=== PATIENT | female | born 1965 | race Hispanic/Latino ===

== ENCOUNTER 2017-08-03 15:51 | Inpatient (IN) | payer MEDICAID ==
[2017-08-03 16:32] LABS: Basophils % (Auto) 0.5 % (0.0-1.8); Eosinophils % (Auto) 3.8 % (0.0-4.3); Hematocrit 37.7 % (30.3-42.9); Hemoglobin 12.2 gm/dl (10.1-14.3); Mean Corpuscular HGB Conc 33 % (30-34); Mean Corpuscular Hemoglobin 29 pg (28-32); Mean Corpuscular Volume 90 fl (79-97); Platelet Count 302 K/mm3 (140-440); Red Blood Count 4.17 M/mm3 (3.65-5.03); Red Cell Distribution Width 15.5 % (13.2-15.2); White Blood Count 7.8 K/mm3 (4.5-11.0)
[2017-08-03 16:57] LABS: Anion Gap 16 mmol/L; BUN/Creatinine Ratio 20; Blood Urea Nitrogen 12 mg/dL (7-17); Calcium 8.9 mg/dL (8.4-10.2); Carbon Dioxide 26 mmol/L (22-30); Chloride 107.6 mmol/L (98-107); Glucose 78 mg/dL (65-100); Potassium 4.4 mmol/L (3.6-5.0); Sodium 145 mmol/L (137-145)
--- NOTE | 2017-08-03 17:26 | XRay Report ---
FINAL REPORT EXAM: XR CHEST 1V AP HISTORY: sob TECHNIQUE: upright single view chest PRIORS: None. FINDINGS: Cardiac and mediastinal contours are unremarkable. No focal pulmonary infiltrate is identified. No pleural fluid collection seen. Pulmonary vasculature is unremarkable. IMPRESSION: Negative single-view chest
[2017-08-03] MEDS ORDERED: XOPENEX IH ONE (17:30)
[2017-08-03] MEDS ORDERED: LASIX IV ONE (17:30)
[2017-08-03] MEDS ORDERED: ATROVENT IH ONE (17:30)
--- NOTE | 2017-08-03 17:35 | Emergency Department Report ---
ED Shortness of Breath HPI - General Chief Complaint: Dyspnea/Respdistress Stated Complaint: SOCORRO Time Seen by Provider: 08/03/17 17:21 Source: EMS Mode of arrival: Wheelchair Limitations: Physical Limitation - History of Present Illness Initial Comments: Patient is 52 years old morbidly obese female with history of COPD and congestive heart failure presented with three-day history of increasing shortness of breath and difficulty breathing. Patient stated that she is using her albuterol and she double up her Lasix and this morning but no improvement. Patient denied any fever nausea or vomiting. No chest pain. MD Complaint: shortness of breath -: Gradual Improves With: nothing Known History Of: COPD, congestive heart failure - Related Data Home Oxygen Therapy: Yes Home Oxygen Amount: 2 Liters Home Medications Medication Instructions Recorded Confirmed Last Taken Gabapentin [Gralise] 300 mg PO QHS 08/03/17 08/03/17 Unknown Symbicort 160-4.5 Mcg Inhaler 165 mcg IH Q6HR 08/03/17 08/03/17 08/02/17 Previous Rx's Medication Instructions Recorded Last Taken Type Albuterol Sulfate [Ventolin HFA] 2 puff IH Q4H PRN #1 hfa.aer.ashwini 07/08/17 Unknown Rx Aspirin [Lo-Dose Aspirin EC] 81 mg PO DAILY #30 tablet. 07/08/17 Unknown Rx AtorvaSTATin [Lipitor] 10 mg PO QHS #30 tablet 07/08/17 Unknown Rx Budesonide/Formoterol Fumarate 10.2 gm IH Q4-6H #1 hfa.aer.ashwini 07/08/17 Unknown Rx [Symbicort 160-4.5 Mcg Inhaler] Carvedilol [Coreg] 12.5 mg PO BID #60 tablet 07/08/17 Unknown Rx Docusate Sodium [Colace CAP] 100 mg PO BID PRN #60 capsule 07/08/17 Unknown Rx Duloxetine HCl [DULoxetine] 30 mg PO DAILY #30 capsule. 07/08/17 Unknown Rx Folic Acid [Folvite] 1 mg PO QDAY #30 tablet 07/08/17 Unknown Rx Furosemide [Lasix] 80 mg PO BID #60 tablet 07/08/17 Unknown Rx Levofloxacin [Levaquin TAB] 750 mg PO Q24HR #5 tablet 07/08/17 Unknown Rx Loratadine [Claritin] 10 mg PO DAILY #30 tablet 07/08/17 Unknown Rx oxyCODONE /ACETAMINOPHEN [Percocet 1 tab PO Q6HR PRN #14 tablet 07/08/17 Unknown Rx 5/325 mg] predniSONE [Deltasone] 10 mg PO .TAPER #21 tab 07/08/17 Unknown Rx Allergies Allergy/AdvReac Type Severity Reaction Status Date / Time No Known Allergies Allergy Unverified 07/03/17 07:39 ED Review of Systems ROS: Stated complaint: SOCORRO Other details as noted in HPI Comment: All other systems reviewed and negative Constitutional: denies: chills, fever Respiratory: orthopnea, shortness of breath, SOB with exertion, SOB at rest, wheezing. denies: cough Cardiovascular: dyspnea on exertion, orthopnea. denies: chest pain, palpitations, edema, syncope Gastrointestinal: denies: abdominal pain, nausea, vomiting, diarrhea, constipation, hematemesis, melena, hematochezia Genitourinary: denies: urgency Neurological: denies: headache, weakness, numbness, paresthesias ED Past Medical Hx - Past Medical History Previous Medical History?: Yes Hx Hypertension: Yes Hx Congestive Heart Failure: Yes Hx Deep Vein Thrombosis: Yes Hx COPD: Yes Additional medical history: lymphedema - Surgical History Past Surgical History?: Yes Hx Cholecystectomy: Yes Additional Surgical History: cyst removed from wrist, tubal ligation - Social History Smoking Status: Former Smoker - Medications Home Medications: Home Medications Medication Instructions Recorded Confirmed Last Taken Type Albuterol Sulfate [Ventolin HFA] 2 puff IH Q4H PRN #1 hfa.aer.ad 07/08/17 Unknown Rx Aspirin [Lo-Dose Aspirin EC] 81 mg PO DAILY #30 tablet.dr 07/08/17 08/03/17 Unknown Rx AtorvaSTATin [Lipitor] 10 mg PO QHS #30 tablet 07/08/17 08/03/17 Unknown Rx Budesonide/Formoterol Fumarate 10.2 gm IH Q4-6H #1 hfa.aer.ad 07/08/17 08/03/17 Unknown Rx [Symbicort 160-4.5 Mcg Inhaler] Carvedilol [Coreg] 12.5 mg PO BID #60 tablet 07/08/17 08/03/17 Unknown Rx Docusate Sodium [Colace CAP] 100 mg PO BID PRN #60 capsule 07/08/17 08/03/17 Unknown Rx Duloxetine HCl [DULoxetine] 30 mg PO DAILY #30 capsule. 07/08/17 08/03/17 Unknown Rx Folic Acid [Folvite] 1 mg PO QDAY #30 tablet 07/08/17 08/03/17 Unknown Rx Furosemide [Lasix] 80 mg PO BID #60 tablet 07/08/17 08/03/17 Unknown Rx Levofloxacin [Levaquin TAB] 750 mg PO Q24HR #5 tablet 07/08/17 08/03/17 Unknown Rx Loratadine [Claritin] 10 mg PO DAILY #30 tablet 07/08/17 08/03/17 Unknown Rx oxyCODONE /ACETAMINOPHEN [Percocet 1 tab PO Q6HR PRN #14 tablet 07/08/17 Unknown Rx 5/325 mg] predniSONE [Deltasone] 10 mg PO .TAPER #21 tab 07/08/17 08/03/17 Unknown Rx Gabapentin [Gralise] 300 mg PO QHS 08/03/17 08/03/17 Unknown History Symbicort 160-4.5 Mcg Inhaler 165 mcg IH Q6HR 08/03/17 08/03/17 08/02/17 History ED Physical Exam - General Limitations: No Limitations, Physical Limitation General appearance: alert, in distress - Head Head exam: Present: atraumatic, normocephalic, normal inspection - Eye Eye exam: Present: normal appearance, PERRL - ENT ENT exam: Present: normal exam, normal orophraynx, mucous membranes moist - Neck Neck exam: Present: normal inspection, full ROM. Absent: tenderness, meningismus, lymphadenopathy, thyromegaly - Respiratory Respiratory exam: Present: respiratory distress, wheezes, rales, rhonchi, decreased breath sounds, prolonged expiratory. Absent: stridor, chest wall tenderness, accessory muscle use - Cardiovascular Cardiovascular Exam: Present: regular rate, normal rhythm, normal heart sounds - GI/Abdominal GI/Abdominal exam: Present: soft, normal bowel sounds. Absent: tenderness, guarding, rebound, rigid, organomegaly, mass, bruit, pulsatile mass - Extremities Exam Extremities exam: Present: normal inspection, normal capillary refill, pedal edema. Absent: calf tenderness - Back Exam Back exam: Present: normal inspection, CVA tenderness (R), CVA tenderness (L). Absent: paraspinal tenderness - Neurological Exam Neurological exam: Present: alert, oriented X3, CN II-XII intact, normal gait - Skin Skin exam: Present: warm, intact, normal color. Absent: cyanosis, diaphoretic, erythema, urticaria ED Course Vital Signs 08/03/17 08/03/17 08/03/17 15:57 16:00 16:08 Temperature 98.2 F Pulse Rate 95 H 92 H Respiratory 17 14 16 Rate Blood Pressure 130/84 O2 Sat by Pulse 100 99 90 Oximetry 08/03/17 08/03/17 08/03/17 16:15 16:30 16:46 Temperature Pulse Rate 86 Respiratory 11 L 16 17 Rate Blood Pressure 143/102 113/71 114/88 O2 Sat by Pulse 99 100 98 Oximetry ED Medical Decision Making - Lab Data Result diagrams: 08/03/17 16:14 08/03/17 16:14 - EKG Data -: EKG Interpreted by Me EKG shows normal: sinus rhythm - EKG Data Interpretation: no acute changes - Radiology Data Radiology results: report reviewed interpreted by me: Pulmonary edema was bilateral pleural effusion. - Medical Decision Making Discussed is Dr. Paz, I presented the patient to him, he agreed to admit the patient to his service. Critical care attestation.: If time is entered above; I have spent that time in minutes in the direct care of this critically ill patient, excluding procedure time. ED Disposition Clinical Impression: Acute respiratory failure, Hypercapnic respiratory failure, Morbid obesity, COPD with acute exacerbation, Acute exacerbation of CHF (congestive heart failure) Disposition: OP ADMIT IP TO THIS HOSP Is pt being admited?: Yes Condition: Stable Instructions: Chronic Obstructive Pulmonary Disease (ED) Referrals: PRIMARY CARE, [Primary Care Provider] - 3-5 Days
[2017-08-03] MEDS ORDERED: PERCOCET 5/325 ONE (19:01)
[2017-08-03] MEDS ORDERED: PERCOCET 5/325 PO ONE (19:14)
[2017-08-03] MEDS ORDERED: PROAIR IH PRN (21:49)
[2017-08-03] MEDS ORDERED: COLACE PO PRN (21:49)
--- NOTE | 2017-08-03 21:49 | Event Note ---
Date: 08/03/17
[2017-08-03] MEDS ORDERED: DUONEB *Not for PRN Use IH (21:52)
[2017-08-03] MEDS ORDERED: NON-FORMULARY (Gabapentin [Gralise] 300 MG) PO SCH (22:00)
[2017-08-03] MEDS ORDERED: NON-FORMULARY (Budesonide/Formoterol Fumarate [Symbicort 160-4.5 Mcg Inhaler] 10.2 GM) IH SCH (22:00)
[2017-08-03] MEDS ORDERED: LASIX PO SCH (22:00)
[2017-08-03] MEDS: FOLVITE PO SCH (22:38)
[2017-08-03] MEDS: LEVAQUIN 750MG/150ML 750 MG/150 ML BAG IV SCH (22:39)
[2017-08-03] MEDS: COREG PO SCH (22:41)
[2017-08-03] MEDS ORDERED: PROVENTIL IH PRN (22:46)
[2017-08-03] MEDS: CYMBALTA PO SCH (22:52)
[2017-08-03] MEDS: DUONEB *Not for PRN Use IH SCH (22:53)
[2017-08-04] MEDS: PERCOCET 5/325 PO PRN ×4 (01:06→23:01)
[2017-08-04] MEDS ORDERED: BROVANA NEBU IH SCH (08:00)
[2017-08-04] MEDS ORDERED: PULMICORT IH SCH (08:00)
[2017-08-04] MEDS ORDERED: DULCOLAX PR PRN (08:22)
[2017-08-04] MEDS ORDERED: TYLENOL PO PRN (08:22)
[2017-08-04] MEDS ORDERED: MILK OF MAGNESIA PO PRN (08:22)
[2017-08-04] MEDS: DUONEB *Not for PRN Use IH SCH ×4 (09:15→21:17)
[2017-08-04] MEDS: COREG PO SCH ×2 (10:22→22:55)
[2017-08-04] MEDS: CYMBALTA PO SCH (10:22)
[2017-08-04] MEDS: HALFPRIN EC PO SCH (10:23)
[2017-08-04] MEDS: FOLVITE PO SCH (10:23)
[2017-08-04] MEDS: CLARITIN PO SCH (10:23)
[2017-08-04] MEDS: K-DUR PO SCH ×2 (10:23→22:50)
[2017-08-04] MEDS: LEVAQUIN 750MG/150ML 750 MG/150 ML BAG IV SCH (10:28)
[2017-08-04 11:02] LABS: ISTAT Base Excess 0; ISTAT DEVICE 0; ISTAT HCO3 25.1; ISTAT PCO2 42.3 (35-45); ISTAT PH 7.381 (7.35-7.45); ISTAT PO2 56 (80-105); ISTAT SO2 88; ISTAT TCO2 26
--- NOTE | 2017-08-04 13:07 | History and Physical Report ---
CHIEF COMPLAINT: Increasing shortness of breath for 3 days. HISTORY OF PRESENT ILLNESS: A 52-year-old -Stateless female with history of COPD and congestive heart failure, presents with 3 days history of worsening shortness of breath. The patient also retaining ____. Took 160 mg of Lasix this morning with no results. Continues to have wheezing and cough productive of mucoid sputum. No chest pain. No diaphoresis. No palpitations. No fever, no chills. No recent travel. PAST MEDICAL HISTORY: Significant for COPD, hyperlipidemia, hypertension, congestive heart failure, allergic rhinitis. PAST SURGICAL HISTORY: Cholecystectomy and tubal ligation and a cyst removed from the wrist. SOCIAL HISTORY: Former smoker, stopped smoking many years ago. FAMILY HISTORY: Significant for hypertension. CURRENT MEDICATIONS: Albuterol inhaler 2 puffs q.i.d., aspirin 81 mg once a day, Lipitor 10 mg once a day, Symbicort inhaler 2 puffs b.i.d., Coreg 12.5 mg twice a day, Cymbalta 30 mg once a day, folic acid 1 mg once a day, Lasix 80 mg 1 twice a day, loratadine 10 mg once a day, and prednisone 10 mg once a day. REVIEW OF SYSTEMS: Significant for increasing shortness of breath and increasing fluid retention and shortness of breath on minimal exertion. Also, morbid obesity. Otherwise, review of systems is essentially negative. PHYSICAL EXAMINATION: GENERAL: Middle-aged female, morbidly obese. VITAL SIGNS: Blood pressure is 130/84, temperature 98.2, sats ranging from 90% 100%. Temperature 98.2, heart rate 88-95. HEENT: Unremarkable. Pupils equal and reactive. Posterior pharynx is normal. NECK: Supple, no lymphadenopathy, no thyromegaly. Accessory muscles of respiration are prominent. CHEST AND LUNGS: Bilateral inspiratory and expiratory rhonchi present. Decreased air entry. CARDIOVASCULAR: S1, S2 heard. No gallop, no murmur, no rub. Apical impulse in left fifth intercostal space and midclavicular line. ABDOMEN: Soft and benign. No tenderness. Hernial orifices are normal. EXTREMITIES: 3+ pedal edema present. CENTRAL NERVOUS SYSTEM: Alert and oriented x 4, nonfocal exam. LABORATORY DATA: Hemoglobin is 12.2, hematocrit is 37.7. Sodium is 145, potassium is 4.4, chloride is 107.6, BUN and creatinine 12 and 0.6. EKG, normal sinus rhythm. Chest x-ray, no infiltrates. No ABG done. ASSESSMENT AND PLAN: 1. Chronic obstructive pulmonary disease exacerbation. The patient started on DuoNebs q.6h. round the clock and q.3h. p.r.n. IV Solu-Medrol. Also, IV Levaquin q.24h. 2. Congestive heart failure. IV Lasix 80 mg twice a day along with potassium 40 mEq twice a day. 3. Hypertension. Continue carvedilol 12.5 mg twice a day. 4. Depression. Continue duloxetine 30 mg daily. 5. Hyperlipidemia. Continue statin. Add Lipitor 10 mg daily. 6. Allergic rhinitis. Continue Claritin 10 mg p.o. daily. 7. Chronic pain. Continue oxycodone q.6h. p.r.n. 8. Deep venous thrombosis prophylaxis, Lovenox 40 mg subcutaneous daily. 9. Morbid obesity. The patient to be counseled by team. JOB# [id number] SUSANA/NTS
--- NOTE | 2017-08-04 14:10 | Progress Note ---
Assessment and Plan /Acute respiratory failure with hypoxia Patient oxygen saturation improved with BiPAP; currently SPO2 98%. No acute respiratory distress noted. Aggressive Nebulizers/Inhalers Home o2 eval prior to discharge ABG when necessary Oxygen supplement as needed Pulmonary consulted continue Supportive care /Acute COPD exacerbation Continue on Duoneb every 6 hours Ferdinand IV steroid Solumedrol Initiated empiric Levaquin Oxygen as necessary /Acute on Chronic diastolic Congestive heart failure Continue Diuresis with lasix, beta blockers Strict I&O's and daily weights Low-sodium/cardiac diet/fluid restriction Closely monitor electrolytes Cardiology evaluation /Hypertension Resume home antihypertensive medications Closely monitor blood pressure /Hyperlipidemia Resume statin /Morbid obesity Counseling done Case managment consult to assist with social issues. /Chronic Lymphdema PT/OT eval and treat /DVT prophylaxis Lovenox Brief history: Patient is 52 years old morbidly obese female with history of COPD and congestive heart failure presented with three-day history of increasing shortness of breath and difficulty breathing. Radiological test: CXR Hospitalist Physical exam: GENERAL: morbidly obese White female lying on bed appeared to be in mild discomfort. HEENT: Normocephalic. Atraumatic. No conjunctival congestion or icterus. Patient has moist mucous membranes. NECK: Supple. Trachea midline. CHEST/LUNGS: crackle auscultated bilaterally, breathing nonlabored. HEART/CARDIOVASCULAR: Regular in rate and rhythm. S1 and S2 positive. ABDOMEN: Abdomen is soft, nontender, obese. Patient has normal bowel sounds. SKIN: There is no rash. Warm and dry. NEURO: No focal motor deficit. Follows command. MUSCULOSKELETAL: No joint effusion or tenderness. EXTRIMITY: No edema, no cyanosis or clubbing. PSYCH: Cooperative. Subjective Date of service: 08/04/17 Interval history: Pt seen and examined c/o SOB, not on home o2 placed on BiPAP at night but now off Objective - Constitutional Vitals: Vital Signs - 12hr 08/04/17 08/04/17 08/04/17 08:03 09:13 09:15 Temperature 98.0 F Pulse Rate 69 Pulse Rate [ 66 Bilateral Throughout] Respiratory 20 Rate Respiratory 20 Rate [Bilateral Throughout] Blood Pressure 146/83 O2 Sat by Pulse 90 93 Oximetry 08/04/17 08/04/17 08/04/17 09:44 10:22 10:53 Temperature Pulse Rate Pulse Rate [ 85 Bilateral Throughout] Respiratory Rate Respiratory 20 Rate [Bilateral Throughout] Blood Pressure 146/83 O2 Sat by Pulse 90 Oximetry - Labs CBC & Chem 7: 08/03/17 16:14 08/03/17 16:14 Labs: Abnormal lab results 08/03/17 08/03/17 08/04/17 Range/Units 16:14 16:14 10:53 RDW 15.5 H (13.2-15.2) % [place] % (Auto) 8.6 H (0.0-7.3) % POC ABG pO2 56 L (80-105) Chloride 107.6 H (98-107) mmol/L Creatinine 0.6 L (0.7-1.2) mg/dL
[2017-08-04] MEDS ORDERED: PROVENTIL IH PRN (14:54)
[2017-08-04] MEDS: LASIX IV SCH (17:55)
[2017-08-04] MEDS: BROVANA NEBU IH SCH (21:15)
[2017-08-04] MEDS: PULMICORT IH SCH (21:17)
[2017-08-04] MEDS ORDERED: LOVENOX SUB-Q SCH (22:00)
[2017-08-04] MEDS: LOVENOX SUB-Q SCH (22:55)
[2017-08-05] MEDS: DUONEB *Not for PRN Use IH SCH ×4 (02:02→20:04)
[2017-08-05] MEDS: LASIX IV SCH ×2 (06:55→17:19)
[2017-08-05] MEDS: PERCOCET 5/325 PO PRN ×4 (07:11→22:24)
[2017-08-05 09:35] LABS: Anion Gap 19 mmol/L; BUN/Creatinine Ratio 26; Blood Urea Nitrogen 18 mg/dL (7-17); Calcium 8.8 mg/dL (8.4-10.2); Carbon Dioxide 28 mmol/L (22-30); Chloride 97.4 mmol/L (98-107); Glucose 186 mg/dL (65-100); Potassium 4.4 mmol/L (3.6-5.0); Sodium 140 mmol/L (137-145)
[2017-08-05] MEDS: PULMICORT IH SCH ×2 (10:15→20:03)
[2017-08-05] MEDS: BROVANA NEBU IH SCH ×2 (10:15→20:03)
[2017-08-05] MEDS: HALFPRIN EC PO SCH (11:01)
[2017-08-05] MEDS: CYMBALTA PO SCH (11:02)
[2017-08-05] MEDS: CLARITIN PO SCH (11:05)
[2017-08-05] MEDS: FOLVITE PO SCH (11:05)
[2017-08-05] MEDS: PROTONIX PO SCH (11:06)
[2017-08-05] MEDS: COREG PO SCH ×2 (11:10→21:33)
[2017-08-05] MEDS: K-DUR PO SCH ×2 (11:10→21:29)
[2017-08-05] MEDS: LEVAQUIN 750MG/150ML 750 MG/150 ML BAG IV SCH (11:11)
--- NOTE | 2017-08-05 12:03 | Consultation ---
History of Present Illness Consult date: 08/05/17 Requesting physician: PATRICIA STANLEY Consult reason: congestive heart failure History of present illness: The pt is a 52 YO female with a past medical history significant for HTN, diastolic HF, FRANKI, ? obesity hypoventilation syndrome, morbid obesity, COPD, fibromyalgia, lymphedema. She reports that she is regularly followed by [facility]. She has been seen by our practice on prior admission. She presented with SOB and generalized weakness since 6AM on Saturday. She reports that she has been taking 80mg PO BID of lasix at home. She noted on Saturday that her urine output was diminished, and thus she doubled her lasix dosage on Saturday, as reportedly instructed to do per her sales representative aircraft. She continued to have diminished urine output despite the increased lasix dosage and on Saturday she developed SOB. She denies any chest pain, palpitations, n/v, diaphoresis, dizziness or syncope. On evaluation, she is on O2 via [place]. She reports that she has not followed up with her sales representative aircraft recently due to transportation issues. Echo done 07/06/2017 showed mild LVH, EF 50-55%, impaired relaxation. Past History Past Medical History: COPD, heart failure (diastolic), hypertension, other ( morbid obesity; FRANKI) Social history: denies: smoking, alcohol abuse, prescription drug abuse Medications and Allergies Allergies Allergy/AdvReac Type Severity Reaction Status Date / Time No Known Allergies Allergy Unverified 07/03/17 07:39 Home Medications Medication Instructions Recorded Confirmed Last Taken Type Albuterol Sulfate [Ventolin HFA] 2 puff IH Q4H PRN #1 hfa.aer.ashwini 07/08/17 Unknown Rx Aspirin [Lo-Dose Aspirin EC] 81 mg PO DAILY #30 tablet. 07/08/17 08/03/17 Unknown Rx AtorvaSTATin [Lipitor] 10 mg PO QHS #30 tablet 07/08/17 08/03/17 Unknown Rx Budesonide/Formoterol Fumarate 10.2 gm IH Q4-6H #1 hfa.aer.ashwini 07/08/17 08/03/17 Unknown Rx [Symbicort 160-4.5 Mcg Inhaler] Carvedilol [Coreg] 12.5 mg PO BID #60 tablet 07/08/17 08/03/17 Unknown Rx Docusate Sodium [Colace CAP] 100 mg PO BID PRN #60 capsule 07/08/17 08/03/17 Unknown Rx Duloxetine HCl [DULoxetine] 30 mg PO DAILY #30 capsule. 07/08/17 08/03/17 Unknown Rx Folic Acid [Folvite] 1 mg PO QDAY #30 tablet 07/08/17 08/03/17 Unknown Rx Furosemide [Lasix] 80 mg PO BID #60 tablet 07/08/17 08/03/17 Unknown Rx Levofloxacin [Levaquin TAB] 750 mg PO Q24HR #5 tablet 07/08/17 08/03/17 Unknown Rx Loratadine [Claritin] 10 mg PO DAILY #30 tablet 07/08/17 08/03/17 Unknown Rx oxyCODONE /ACETAMINOPHEN [Percocet 1 tab PO Q6HR PRN #14 tablet 07/08/17 Unknown Rx 5/325 mg] predniSONE [Deltasone] 10 mg PO .TAPER #21 tab 07/08/17 08/03/17 Unknown Rx Gabapentin [Gralise] 300 mg PO QHS 08/03/17 08/03/17 Unknown History Symbicort 160-4.5 Mcg Inhaler 165 mcg IH Q6HR 08/03/17 08/03/17 08/02/17 History Active Meds: Active Medications Acetaminophen (Tylenol) 650 mg PO Q4H PRN PRN Reason: Pain MILD(1-3)/Fever >100.5/EDWARDS Albuterol (Proventil) 2.5 mg IH Q4HRT PRN PRN Reason: Shortness Of Breath Albuterol/Ipratropium (Duoneb *Not For Prn Use*) 1 ampul IH Q6HRT [facility] Last Admin: 08/05/17 10:15 Dose: Not Given Arformoterol Tartrate (Brovana Nebu) 15 mcg IH Q12HRT [facility] Last Admin: 08/05/17 10:15 Dose: 15 mcg Aspirin (Halfprin Ec) 81 mg PO DAILY [facility] Last Admin: 08/05/17 11:01 Dose: 81 mg Atorvastatin Calcium (Lipitor) 10 mg PO QHS [facility] Last Admin: 08/04/17 22:55 Dose: 10 mg Bisacodyl (Dulcolax) 10 mg MA QDAY PRN PRN Reason: Constipation unrelieved by MOM Budesonide (Pulmicort) 0.5 mg IH Q12HRT [facility] Last Admin: 08/05/17 10:15 Dose: 0.5 mg Carvedilol (Coreg) 12.5 mg PO BID [facility] Last Admin: 08/05/17 11:10 Dose: Not Given Docusate Sodium (Colace) 100 mg PO BID PRN PRN Reason: Constipation Duloxetine HCl (Cymbalta) 30 mg PO DAILY [facility] Last Admin: 08/05/17 11:02 Dose: 30 mg Enoxaparin Sodium (Lovenox) 40 mg SUB-Q QDAY@2200 [facility] Last Admin: 08/04/17 22:55 Dose: 40 mg Folic Acid (Folvite) 1 mg PO QDAY [facility] Last Admin: 08/05/17 11:05 Dose: 1 mg Furosemide (Lasix) 80 mg IV 0600,1800 [facility] Last Admin: 08/05/17 06:55 Dose: 80 mg Levofloxacin/Dextrose (Levaquin 750mg/150ml) 750 mg in 150 mls @ 100 mls/hr IV Q24HR [facility] PRN Reason: Protocol Stop: 08/05/17 13:59 Last Admin: 08/05/17 11:11 Dose: 100 mls/hr Levofloxacin (Levaquin) 750 mg PO DAILY [facility] Loratadine (Claritin) 10 mg PO DAILY [facility] Last Admin: 08/05/17 11:05 Dose: 10 mg Magnesium Hydroxide (Milk Of Magnesia) 30 ml PO Q4H PRN PRN Reason: Constipation Methylprednisolone Sodium Succinate (Solu-Medrol) 60 mg IV Q8HR [facility] Miscellaneous Medication (Gabapentin [Gralise]) 300 mg PO QHS [facility] Ondansetron HCl (Zofran) 4 mg IV Q8H PRN PRN Reason: N/V unrelieved by Reglan Oxycodone/Acetaminophen (Percocet 5/325) 1 tab PO Q6HR PRN PRN Reason: Pain, Moderate (4-6) Last Admin: 08/05/17 07:11 Dose: 1 tab Pantoprazole Sodium (Protonix) 40 mg PO QDAY [facility] Last Admin: 08/05/17 11:06 Dose: 40 mg Potassium Chloride (K-Dur) 40 meq PO Q12H [facility] Last Admin: 08/05/17 11:10 Dose: 40 meq Review of Systems Constitutional: no weight loss, no weight gain, no fever, no chills, no sweats Ears, nose, mouth and throat: no ear pain, no nose pain, no sinus pressure, no sinus pain Cardiovascular: edema, shortness of breath, paroxysmal nocturnal dyspnea, leg edema (acute on chronic BLE), no chest pain, no palpitations, no rapid/ irregular heart beat, no syncope, no lightheadedness Respiratory: shortness of breath, no cough, no congestion, no wheezing, no pain on inspiration Gastrointestinal: no abdominal pain, no nausea, no vomiting, no diarrhea, no constipation, no change in bowel habits Genitourinary Female: no pelvic pain, no flank pain, no dysuria, no urinary frequency, no urgency Musculoskeletal: no neck stiffness, no neck pain, no shooting arm pain, no arm numbness/tingling, no low back pain, no shooting leg pain, no leg numbness/ tingling, no redness of joints Integumentary: no rash, no pruritis, no redness, no sores, no wounds Neurological: no paralysis, no weakness, no numbness, no tingling, no seizures, no syncope Psychiatric: no anxiety Endocrine: no cold intolerance, no heat intolerance Hematologic/Lymphatic: no easy bruising, no easy bleeding, no lymphadenopathy Allergic/Immunologic: no urticaria, no wheezing, no persistent infections Physical Examination Vital Signs Pulse Resp Pulse Ox 95 H 17 100 08/03/17 15:57 08/03/17 15:57 08/03/17 15:57 General appearance: no acute distress HEENT: Positive: PERRL, Normocephaly, Mucus Membranes Moist Cardiac: Positive: Reg Rate and Rhythm, S1/S2 Lungs: Positive: Decreased Breath Sounds, Wheezes (expiratory) Neuro: Positive: Grossly Intact Abdomen: Positive: Soft Skin: Positive: Clear. Negative: Rash, Wound Extremities: Present: +2 Edema (BLE), Other (chronic LLE lymphedema) Results 08/03/17 16:14 08/05/17 08:35 Comprehensive Metabolic Panel 08/05/17 Range/Units 08:35 Sodium 140 (137-145) mmol/L Potassium 4.4 (3.6-5.0) mmol/L Chloride 97.4 L (98-107) mmol/L Carbon Dioxide 28 (22-30) mmol/L BUN 18 H (7-17) mg/dL Creatinine 0.7 (0.7-1.2) mg/dL Glucose 186 H (65-100) mg/dL Calcium 8.8 (8.4-10.2) mg/dL - Imaging and Cardiology Echo: report reviewed ( 07/06/2017 showed mild LVH, EF 50-55%, impaired relaxation) EKG: report reviewed, image reviewed EKG interpretations - Telemetry EKG Rhythm: Sinus Rhythm - EKG Sinus rhythms and dysrhythmias: sinus rhythm QRS axis and voltage: low voltage Repolarization changes or abnormalities: nonspecific abnormality, ST segment, and/or T wave Assessment and Plan Assessment: Acute respiratory failure / ? obesity hypoventilation syndrome COPD exacerbation Acute diastolic HF FRAKNI HTN Fibromyalgia Lymphedema Morbid obesity Plan: Agree with current cardiac management. Repeat BMP in AM. Assessment and plan reviewed with pt at bedside. The patient has been seen in conjunction with Dr. Roblero who agrees with the assessment and plan of care.
--- NOTE | 2017-08-05 15:09 | Progress Note ---
Assessment and Plan /Acute respiratory failure with hypoxia Patient oxygen saturation improved with BiPAP; currently SPO2 98%. No acute respiratory distress noted. Aggressive Nebulizers/Inhalers Home o2 eval prior to discharge ABG when necessary Oxygen supplement as needed Pulmonary consulted continue Supportive care /Acute COPD exacerbation Continue on Duoneb every 6 hours Ferdinand IV steroid Solumedrol Initiated empiric Levaquin Oxygen as necessary /Acute on Chronic diastolic Congestive heart failure Continue Diuresis with lasix, beta blockers Strict I&O's and daily weights Low-sodium/cardiac diet/fluid restriction Closely monitor electrolytes Cardiology consulted /Hypertension Resume home antihypertensive medications Closely monitor blood pressure /Hyperlipidemia Resume statin /Morbid obesity Counseling done Case managment consult to assist with social issues. /Chronic Lymphdema PT/OT eval and treat /DVT prophylaxis Lovenox Brief history: Patient is 52 years old morbidly obese female with history of COPD and congestive heart failure presented with three-day history of increasing shortness of breath and difficulty breathing. Radiological test: CXR Hospitalist Physical exam: GENERAL: morbidly obese White female lying on bed appeared to be in mild discomfort. HEENT: Normocephalic. Atraumatic. No conjunctival congestion or icterus. Patient has moist mucous membranes. NECK: Supple. Trachea midline. CHEST/LUNGS: crackle auscultated bilaterally, breathing nonlabored. HEART/CARDIOVASCULAR: Regular in rate and rhythm. S1 and S2 positive. ABDOMEN: Abdomen is soft, nontender, obese. Patient has normal bowel sounds. SKIN: There is no rash. Warm and dry. NEURO: No focal motor deficit. Follows command. MUSCULOSKELETAL: No joint effusion or tenderness. EXTRIMITY: No edema, no cyanosis or clubbing. PSYCH: Cooperative. Subjective Date of service: 08/05/17 Interval history: Pt seen and examined cont to c/o SOB, not on home o2 placed on BiPAP at night time during sleep about 4L of urine output in last 24 h Objective - Constitutional Vitals: Vital Signs - 12hr 08/05/17 08/05/17 08/05/17 07:52 10:00 10:16 Temperature 98.1 F Pulse Rate 68 Pulse Rate [ 68 Bilateral Throughout] Respiratory 19 Rate Respiratory 19 Rate [Bilateral Throughout] Blood Pressure 119/61 O2 Sat by Pulse 89 95 Oximetry 08/05/17 08/05/17 11:10 12:32 Temperature Pulse Rate Pulse Rate [ Bilateral Throughout] Respiratory 20 Rate Respiratory Rate [Bilateral Throughout] Blood Pressure 119/61 O2 Sat by Pulse Oximetry - Labs CBC & Chem 7: 08/03/17 16:14 08/06/17 06:37 Labs: Abnormal lab results 08/05/17 Range/Units 08:35 Chloride 97.4 L (98-107) mmol/L BUN 18 H (7-17) mg/dL Glucose 186 H (65-100) mg/dL
[2017-08-05] MEDS: NEURONTIN PO SCH (21:36)
[2017-08-05] MEDS: ZOFRAN IV PRN (21:41)
[2017-08-05] MEDS: LOVENOX SUB-Q SCH (21:42)
[2017-08-06] MEDS: DUONEB *Not for PRN Use IH SCH ×4 (02:11→20:42)
[2017-08-06] MEDS: LASIX IV SCH ×2 (06:05→18:39)
[2017-08-06] MEDS: PERCOCET 5/325 PO PRN ×3 (06:30→23:39)
[2017-08-06 07:26] LABS: Anion Gap 19 mmol/L; BUN/Creatinine Ratio 39; Blood Urea Nitrogen 27 mg/dL (7-17); Calcium 8.2 mg/dL (8.4-10.2); Carbon Dioxide 30 mmol/L (22-30); Chloride 98.2 mmol/L (98-107); Glucose 195 mg/dL (65-100); Potassium 5.1 mmol/L (3.6-5.0); Sodium 142 mmol/L (137-145)
[2017-08-06] MEDS: BROVANA NEBU IH SCH ×2 (08:26→20:47)
[2017-08-06] MEDS: PULMICORT IH SCH ×2 (08:27→20:42)
--- NOTE | 2017-08-06 09:58 | Progress Note ---
Assessment and Plan Assessment: Acute respiratory failure / ? obesity hypoventilation syndrome COPD exacerbation Acute diastolic HF FRANKI HTN Fibromyalgia Lymphedema Morbid obesity Plan: Decrease IV lasix to 40mg BID given increase in BUN. Repeat BMP in AM. Assessment and plan reviewed with pt at bedside. The patient has been seen in conjunction with Dr. Roblero who agrees with the assessment and plan of care. Subjective Date of service: 08/06/17 Principal diagnosis: COPD; HF Interval history: Pt resting comfortably in bed, states SOB and generalized weakness improving. Objective Last Vital Signs Temp 97.8 F 08/06/17 07:51 Pulse 64 08/06/17 08:00 Resp 18 08/06/17 08:00 BP 99/46 08/06/17 07:51 Pulse Ox 94 08/06/17 08:28 - Physical Examination General: No Apparent Distress HEENT: Positive: PERRL, Normocephaly, Mucus Membranes Moist Cardiac: Positive: Reg Rate and Rhythm, S1/S2 Lungs: Positive: Wheezes Neuro: Positive: Grossly Intact Abdomen: Positive: Soft Skin: Positive: Clear. Negative: Rash, Wound Extremities: Present: +2 Edema (BLE), Other (chronic LLE lymphedema) - Labs and Meds Comprehensive Metabolic Panel 08/06/17 Range/Units 06:37 Sodium 142 (137-145) mmol/L Potassium 5.1 H (3.6-5.0) mmol/L Chloride 98.2 (98-107) mmol/L Carbon Dioxide 30 (22-30) mmol/L BUN 27 H (7-17) mg/dL Creatinine 0.7 (0.7-1.2) mg/dL Glucose 195 H (65-100) mg/dL Calcium 8.2 L (8.4-10.2) mg/dL - Imaging and Cardiology EKG: report reviewed, image reviewed Echo: report reviewed ( 07/06/2017 showed mild LVH, EF 50-55%, impaired relaxation) - Telemetry EKG Rhythm: Sinus Rhythm - EKG Sinus rhythms and dysrhythmias: sinus rhythm QRS axis and voltage: low voltage Repolarization changes or abnormalities: nonspecific abnormality, ST segment, and/or T wave
[2017-08-06] MEDS: PROTONIX PO SCH (10:49)
[2017-08-06] MEDS: CLARITIN PO SCH (10:49)
[2017-08-06] MEDS: FOLVITE PO SCH (10:49)
[2017-08-06] MEDS: LEVAQUIN PO SCH (10:49)
[2017-08-06] MEDS: HALFPRIN EC PO SCH (10:49)
[2017-08-06] MEDS: CYMBALTA PO SCH (10:49)
--- NOTE | 2017-08-06 12:25 | Event Note ---
Date: 08/06/17 Called to evaluate pt in consult. On chart review and talking to pt, noticed pt has been evaluated by from Pulmonary last month and scheduled for office f/u. 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 will be happy to evaluate if needed or Pulmonary otherwise not available.
[2017-08-06] MEDS: K-DUR PO SCH ×2 (14:21→23:35)
--- NOTE | 2017-08-06 16:26 | Progress Note ---
Assessment and Plan /Acute respiratory failure with hypoxia Patient oxygen saturation improved with BiPAP; currently SPO2 98%. No acute respiratory distress noted. Aggressive Nebulizers/Inhalers Home o2 eval prior to discharge ABG when necessary Oxygen supplement as needed Pulmonary consulted continue Supportive care /Acute COPD exacerbation Continue on Duoneb every 6 hours Ferdinand IV steroid Solumedrol Initiated empiric Levaquin Oxygen as necessary /Acute on Chronic diastolic Congestive heart failure Continue Diuresis with lasix, beta blockers Strict I&O's and daily weights Low-sodium/cardiac diet/fluid restriction Closely monitor electrolytes Cardiology following /Hypertension Resume home antihypertensive medications Closely monitor blood pressure /Hyperlipidemia Resume statin /Morbid obesity Counseling done Case managment consult to assist with social issues. /Chronic Lymphdema PT/OT eval and treat /DVT prophylaxis Lovenox Brief history: Patient is 52 years old morbidly obese female with history of COPD and congestive heart failure presented with three-day history of increasing shortness of breath and difficulty breathing. Radiological test: CXR Hospitalist Physical exam: GENERAL: morbidly obese White female lying on bed appeared to be in mild discomfort. HEENT: Normocephalic. Atraumatic. No conjunctival congestion or icterus. Patient has moist mucous membranes. NECK: Supple. Trachea midline. CHEST/LUNGS: crackle auscultated bilaterally, breathing nonlabored. HEART/CARDIOVASCULAR: Regular in rate and rhythm. S1 and S2 positive. ABDOMEN: Abdomen is soft, nontender, obese. Patient has normal bowel sounds. SKIN: There is no rash. Warm and dry. NEURO: No focal motor deficit. Follows command. MUSCULOSKELETAL: No joint effusion or tenderness. EXTRIMITY: No edema, no cyanosis or clubbing. PSYCH: Cooperative. Subjective Date of service: 08/06/17 Principal diagnosis: COPD; HF Interval history: Pt seen and examined cont to c/o SOB but improved since she got here, not on home o2 placed on BiPAP at night time during sleep Objective - Constitutional Vitals: Vital Signs - 12hr 08/06/17 08/06/17 08/06/17 06:30 07:51 08:00 Temperature 97.8 F Pulse Rate 63 Pulse Rate [ 64 Bilateral Throughout] Pulse Rate [ 67 Throughout] Respiratory 19 20 Rate Respiratory 18 Rate [Bilateral Throughout] Respiratory 16 Rate [ Throughout] Blood Pressure 99/46 O2 Sat by Pulse 89 Oximetry 1208/06/17 08/06/17 08:20 08:28 15:06 Temperature Pulse Rate Pulse Rate [ 80 Bilateral Throughout] Pulse Rate [ 73 Throughout] Respiratory 18 Rate Respiratory 18 Rate [Bilateral Throughout] Respiratory 18 Rate [ Throughout] Blood Pressure O2 Sat by Pulse 94 Oximetry - Labs CBC & Chem 7: 08/03/17 16:14 08/07/17 07:00 Labs: Abnormal lab results 08/06/17 Range/Units 06:37 Potassium 5.1 H (3.6-5.0) mmol/L BUN 27 H (7-17) mg/dL Glucose 195 H (65-100) mg/dL Calcium 8.2 L (8.4-10.2) mg/dL
[2017-08-06] MEDS: COREG PO SCH ×2 (18:32→23:41)
--- NOTE | 2017-08-06 19:24 | Event Note ---
Date: 08/06/[address] Spencer thank you for asking me to participate in the care of this patient. Full consultation dictated. Consultation dictation number: [id number]. This is 63 year old white female Morbidly Obese history of COPD and she is on home O2 and on home trilogy admitted with shortness of breath,peripheral edema and cough.Patient also has history of CHF admitted with shortness of breath. Patient doubled her lasix and increased her use of aerosolized bronchodilators with out much improvement. So patient came to emergency room and admitted to the hospital Patient has history of smoking. She stopped smoking several years ago.No known drug allergies. Chest xray reported no acute findings Impression: 1. Acute exacerbation of COPD 2. Acute bronchitis 3. Peripheral edema. 4. History of CHF PLAN: 1. O2 2 litres via nasal canula. 2. BIPAP during night time and prn during day time. BIPAP 20/10, FIO2 30%, Rate 20. 3. Continue albuterol/atrovent aerosol treatments q 6 hours. 4. Continue I/V solumedral. 5. Continue Levaquine 6. Continue S/C Lovenox. 7. Continue Protonix.
[2017-08-06] MEDS: NEURONTIN PO SCH (23:34)
[2017-08-06] MEDS: LOVENOX SUB-Q SCH (23:34)
[2017-08-07] MEDS: DUONEB *Not for PRN Use IH SCH ×4 (02:47→21:23)
[2017-08-07] MEDS: LASIX IV SCH ×2 (05:55→18:08)
[2017-08-07] MEDS: PERCOCET 5/325 PO PRN ×4 (06:07→23:54)
[2017-08-07 08:06] LABS: Anion Gap 18 mmol/L; BUN/Creatinine Ratio 46; Blood Urea Nitrogen 32 mg/dL (7-17); Calcium 8.4 mg/dL (8.4-10.2); Carbon Dioxide 31 mmol/L (22-30); Chloride 96.8 mmol/L (98-107); Glucose 198 mg/dL (65-100); Potassium 4.6 mmol/L (3.6-5.0); Sodium 141 mmol/L (137-145)
[2017-08-07] MEDS: PULMICORT IH SCH ×2 (08:29→21:23)
[2017-08-07] MEDS: BROVANA NEBU IH SCH ×2 (08:30→21:23)
[2017-08-07] MEDS: HALFPRIN EC PO SCH (09:33)
[2017-08-07] MEDS: COREG PO SCH ×2 (09:34→22:59)
[2017-08-07] MEDS: PROTONIX PO SCH (09:34)
[2017-08-07] MEDS: CYMBALTA PO SCH (09:34)
[2017-08-07] MEDS: CLARITIN PO SCH (09:34)
[2017-08-07] MEDS: FOLVITE PO SCH (09:34)
[2017-08-07] MEDS: LEVAQUIN PO SCH (09:34)
[2017-08-07] MEDS: K-DUR PO SCH ×2 (09:34→23:03)
--- NOTE | 2017-08-07 10:19 | Progress Note ---
Assessment and Plan Assessment: Acute respiratory failure / ? obesity hypoventilation syndrome COPD exacerbation Acute diastolic HF FRANKI HTN Fibromyalgia Lymphedema Morbid obesity Plan: Cont present cardiac regimen. Repeat BMP in AM. Pt may possibly be stable for discharge from cardiology standpoint in AM. Assessment and plan reviewed with pt at bedside. The patient has been seen in conjunction with Dr. Roblero who agrees with the assessment and plan of care. Subjective Date of service: 08/07/17 Principal diagnosis: COPD; HF Interval history: Pt resting comfortably in bed, states SOB and generalized weakness improving. Objective Last Vital Signs Temp 98.0 F 08/07/17 07:37 Pulse 70 08/07/17 09:34 Resp 20 08/07/17 07:37 BP 117/63 08/07/17 09:34 Pulse Ox 94 08/07/17 07:37 - Physical Examination General: No Apparent Distress HEENT: Positive: PERRL, Normocephaly, Mucus Membranes Moist Cardiac: Positive: Reg Rate and Rhythm, S1/S2 Lungs: Positive: Decreased Breath Sounds Neuro: Positive: Grossly Intact Abdomen: Positive: Soft Skin: Positive: Clear. Negative: Rash, Wound Extremities: Present: +2 Edema (BLE), Other (chronic LLE lymphedema) - Labs and Meds Comprehensive Metabolic Panel 08/07/17 Range/Units 07:00 Sodium 141 (137-145) mmol/L Potassium 4.6 (3.6-5.0) mmol/L Chloride 96.8 L (98-107) mmol/L Carbon Dioxide 31 H (22-30) mmol/L BUN 32 H (7-17) mg/dL Creatinine 0.7 (0.7-1.2) mg/dL Glucose 198 H (65-100) mg/dL Calcium 8.4 (8.4-10.2) mg/dL - Imaging and Cardiology EKG: report reviewed, image reviewed Echo: report reviewed ( 07/06/2017 showed mild LVH, EF 50-55%, impaired relaxation) - EKG Sinus rhythms and dysrhythmias: sinus rhythm QRS axis and voltage: low voltage Repolarization changes or abnormalities: nonspecific abnormality, ST segment, and/or T wave
--- NOTE | 2017-08-07 15:59 | Progress Note ---
Assessment and Plan /Acute respiratory failure with hypoxia Patient oxygen saturation improved with BiPAP; currently SPO2 98%. No acute respiratory distress noted. Aggressive Nebulizers/Inhalers Home o2 eval prior to discharge ABG when necessary Oxygen supplement as needed Pulmonary consulted continue Supportive care /Acute on Chronic diastolic Congestive heart failure Continue Diuresis with lasix, beta blockers Strict I&O's and daily weights Low-sodium/cardiac diet/fluid restriction Closely monitor electrolytes Cardiology following /Acute COPD exacerbation Continue on Duoneb every 6 hours Ferdinand IV steroid Solumedrol Initiated empiric Levaquin Oxygen as necessary /Hypertension Resume home antihypertensive medications Closely monitor blood pressure /Hyperlipidemia Resume statin /Morbid obesity Counseling done Case managment consult to assist with social issues. /Chronic Lymphdema PT/OT eval and treat /DVT prophylaxis Lovenox Brief history: Patient is 52 years old morbidly obese female with history of COPD and congestive heart failure presented with three-day history of increasing shortness of breath and difficulty breathing. Radiological test: CXR Hospitalist Physical exam: GENERAL: morbidly obese White female lying on bed appeared to be in mild discomfort. HEENT: Normocephalic. Atraumatic. No conjunctival congestion or icterus. Patient has moist mucous membranes. NECK: Supple. Trachea midline. CHEST/LUNGS: crackle auscultated bilaterally, breathing nonlabored. HEART/CARDIOVASCULAR: Regular in rate and rhythm. S1 and S2 positive. ABDOMEN: Abdomen is soft, nontender, obese. Patient has normal bowel sounds. SKIN: There is no rash. Warm and dry. NEURO: No focal motor deficit. Follows command. MUSCULOSKELETAL: No joint effusion or tenderness. EXTRIMITY: No edema, no cyanosis or clubbing. PSYCH: Cooperative. Subjective Date of service: 08/07/17 Principal diagnosis: COPD; HF Interval history: Pt seen and examined cont to c/o SOB but improved since she got here, not on home o2 placed on BiPAP at night time during sleep Objective - Constitutional Vitals: Vital Signs - 12hr 08/07/17 08/07/17 08/07/17 07:07 07:37 08:34 Temperature 98.0 F Pulse Rate 61 Pulse Rate [ 76 Bilateral Throughout] Respiratory 20 20 Rate Respiratory 20 Rate [Bilateral Throughout] Blood Pressure 116/65 O2 Sat by Pulse 94 96 Oximetry 08/07/17 08/07/17 08/07/17 08:45 09:34 10:00 Temperature Pulse Rate 70 Pulse Rate [ 67 Bilateral Throughout] Respiratory 20 Rate Respiratory 20 Rate [Bilateral Throughout] Blood Pressure 117/63 O2 Sat by Pulse Oximetry 08/07/17 08/07/17 08/07/17 11:35 14:21 14:31 Temperature Pulse Rate Pulse Rate [ 67 66 Bilateral Throughout] Respiratory 20 Rate Respiratory 20 18 Rate [Bilateral Throughout] Blood Pressure O2 Sat by Pulse Oximetry - Labs CBC & Chem 7: 08/03/17 16:14 08/07/17 07:00 Labs: Abnormal lab results 08/07/17 Range/Units 07:00 Chloride 96.8 L (98-107) mmol/L Carbon Dioxide 31 H (22-30) mmol/L BUN 32 H (7-17) mg/dL Glucose 198 H (65-100) mg/dL
--- NOTE | 2017-08-07 19:20 | Progress Note ---
Assessment and Plan Patient says breathing slightly better.Patient resting on 3 litres O2. O2 saturation 94%. - Patient Problems (1) COPD with acute exacerbation Current Visit: Yes Status: Acute Plan to address problem: O2 3 litres via nasal canula. BIPAP during the night time and Prn during day time. Albuterol/atrovent aerosol treatments q 6 hours. Continue I/V solumedral. Continue S/C Lovenox. Continue Protonix. Continue Levaquine. (2) Acute exacerbation of CHF (congestive heart failure) Current Visit: Yes Status: Acute Plan to address problem: Management as per primary care and cardiology. (3) Acute bronchitis Current Visit: Yes Status: Acute Plan to address problem: Continue Levaquine. (4) Peripheral edema Current Visit: Yes Status: Acute Plan to address problem: Patient is on S/c Lovenox. Patient said she has venous doppler studies on legs recently which are negative. Subjective Date of service: 08/07/17 Principal diagnosis: COPD; HF Interval history: Patient says breathing slightly better.Patient resting on 3 litres O2. O2 saturation 94%. Objective Vital Signs - 12hr 08/07/17 08/07/17 08/07/17 07:37 08:34 08:45 Temperature 98.0 F Pulse Rate 61 Pulse Rate [ 76 67 Bilateral Throughout] Respiratory 20 Rate Respiratory 20 20 Rate [Bilateral Throughout] Blood Pressure 116/65 O2 Sat by Pulse 94 96 Oximetry 08/07/17 08/07/17 08/07/17 09:34 10:00 11:35 Temperature Pulse Rate 70 Pulse Rate [ Bilateral Throughout] Respiratory 20 20 Rate Respiratory Rate [Bilateral Throughout] Blood Pressure 117/63 O2 Sat by Pulse Oximetry 08/07/17 08/07/17 08/07/17 14:21 14:31 15:29 Temperature 98.3 F Pulse Rate 67 Pulse Rate [ 67 66 Bilateral Throughout] Respiratory 20 Rate Respiratory 20 18 Rate [Bilateral Throughout] Blood Pressure 117/67 O2 Sat by Pulse 94 Oximetry 08/07/17 18:15 Temperature Pulse Rate Pulse Rate [ Bilateral Throughout] Respiratory 18 Rate Respiratory Rate [Bilateral Throughout] Blood Pressure O2 Sat by Pulse Oximetry Constitutional: no acute distress, alert Eyes: non-icteric ENT: oropharynx moist Neck: supple, no lymphadenopathy Ascultation: Bilateral: diminished breath sounds Cardiovascular: regular rate and rhythm Gastrointestinal: normoactive bowel sounds, soft, non-tender, other (Obese.) Integumentary: normal Extremities: no cyanosis, edema Neurologic: normal mental status, non-focal exam, pupils equal and round, CN II- XII normal Psychiatric: mood appropriate CBC and BMP: 08/03/17 16:14 08/07/17 07:00 ABG, PT/INR, D-dimer: ABG POC ABG pH 7.381 (7.35-7.45) 08/04/17 10:53 POC ABG pCO2 42.3 (35-45) 08/04/17 10:53 POC ABG pO2 56 (80-105) L 08/04/17 10:53 POC ABG HCO3 25.1 08/04/17 10:53 POC ABG Total CO2 26 08/04/17 10:53 POC ABG O2 Sat 88 08/04/17 10:53 Abnormal lab findings: Abnormal Labs 08/03/17 08/03/17 08/04/17 16:14 16:14 10:53 RDW 15.5 H [place] % (Auto) 8.6 H POC ABG pO2 56 L Potassium Chloride 107.6 H Carbon Dioxide BUN Creatinine 0.6 L Glucose Calcium 08/05/17 08/06/17 08/07/17 08:35 06:37 07:00 RDW [place] % (Auto) POC ABG pO2 Potassium 5.1 H Chloride 97.4 L 96.8 L Carbon Dioxide 31 H BUN 18 H 27 H 32 H Creatinine Glucose 186 H 195 H 198 H Calcium 8.2 L Chest x-ray: report reviewed (Negative single view chest xray has been reported. ), image reviewed
[2017-08-07] MEDS: LOVENOX SUB-Q SCH (22:58)
[2017-08-07] MEDS: NEURONTIN PO SCH (22:58)
[2017-08-08] MEDS: DUONEB *Not for PRN Use IH SCH ×4 (02:23→20:52)
[2017-08-08] MEDS: PERCOCET 5/325 PO PRN ×4 (06:08→23:35)
[2017-08-08] MEDS: LASIX IV SCH ×2 (06:09→19:04)
[2017-08-08 06:12] LABS: Anion Gap 15 mmol/L; BUN/Creatinine Ratio 53; Blood Urea Nitrogen 32 mg/dL (7-17); Calcium 8.3 mg/dL (8.4-10.2); Carbon Dioxide 29 mmol/L (22-30); Chloride 98.2 mmol/L (98-107); Glucose 204 mg/dL (65-100); Potassium 5.3 mmol/L (3.6-5.0); Sodium 137 mmol/L (137-145)
[2017-08-08] MEDS: BROVANA NEBU IH SCH ×2 (08:04→20:52)
[2017-08-08] MEDS: PULMICORT IH SCH ×2 (08:04→20:52)
--- NOTE | 2017-08-08 08:07 | Consultation ---
CONSULTED BY: Deanna Waldron MD MANUAL LATHE MACHINIST: Hadley Nunez MD REASON FOR CONSULTATION: Acute exacerbation of chronic obstructive pulmonary disease and acute bronchitis. HISTORY OF PRESENT ILLNESS: Dr. Waldron, thank you for asking me to participate in the care of this patient. This is a 52-year-old white female, morbidly obese with history of COPD and on home O2 and also on home ventilator Trilogy who is admitted with shortness of breath, peripheral edema and cough. The patient also has history of CHF and admitted with shortness of breath. The patient doubled her Lasix and increased her bronchodilator. Despite that there is no improvement and the patient came to the Emergency Room. The patient admitted to the hospital. SOCIAL HISTORY: The patient has a history of smoking. She stopped smoking several years ago. ALLERGIES: Denies any drug allergies. IMAGING: Chest x-ray reported no acute findings. MEDICATIONS: The patient is on nasal O2 at this time. The patient on BiPAP during the night time, also started on albuterol and Atrovent aerosol treatments, started on IV Solu-Medrol, Levaquin, subcutaneous Lovenox and Protonix. PHYSICAL EXAMINATION: GENERAL: The patient is morbidly obese. VITAL SIGNS: Temperature is 97.5, pulse 82, respirations 18, O2 saturation 93% on 3 liters O2. Blood pressure 101/60. EYES: Pupils are equal and reactive. Extraocular muscles intact. THROAT: Narrow. NECK: Short and supple. HEART: Regular rate and rhythm. LUNGS: Few bilateral rales and prolonged expiratory phase and decreased breath sounds at the bases. ABDOMEN: Obese, soft, bowel sounds present. No CVA tenderness. MUSCULOSKELETAL: There is a trace edema, no calf tenderness. NEUROLOGICAL: DTRs depressed , but present. Babinski is negative. No focal neurological deficits. LABORATORY DATA: The patient's CBC: WBC 7.8, hemoglobin 12.2, hematocrit 37.7, platelet count 302,000. The patient's ABGs: pH 7.38, pCO2 of 42, pO2 of 56, bicarbonate 25, O2 saturation of 88% on room air and the patient is a candidate for home O2. Recommend home oxygen 2 liters for this patient. The patient already has Trilogy at home. The patient's BMP: Sodium 140, potassium 4.4, carbon dioxide is 28, BUN 18, creatinine 0.7. Chest x-ray reported as negative. IMPRESSION: 1. Acute exacerbation of chronic obstructive pulmonary disease. 2. Acute bronchitis. 3. Peripheral edema. 4. History of congestive heart failure. PLAN: 1. O2 two liters via nasal cannula. 2. BiPAP during the nighttime and p.r.n. during the daytime, BiPAP 20/10 on FiO2 30%, rate of 20. 3. Continue albuterol and Atrovent aerosol treatments q. 6 hours. 4. Continue IV Solu-Medrol. 5. Continue Levaquin. 6. Continue subcutaneous Lovenox. 7. Continue Protonix. I want to thank Dr. Waldron for this consultation. I will follow the patient with her. JOB# [id number] RSLorri/NTS
[2017-08-08] MEDS: LEVAQUIN PO SCH (10:24)
[2017-08-08] MEDS: PROTONIX PO SCH (10:24)
[2017-08-08] MEDS: CLARITIN PO SCH (10:24)
[2017-08-08] MEDS: FOLVITE PO SCH (10:24)
[2017-08-08] MEDS: CYMBALTA PO SCH (10:25)
[2017-08-08] MEDS: HALFPRIN EC PO SCH (10:25)
[2017-08-08] MEDS: K-DUR PO SCH (10:25)
[2017-08-08] MEDS: COREG PO SCH ×2 (10:25→23:04)
--- NOTE | 2017-08-08 12:33 | Discharge Summary ---
Providers - Providers Date of Admission: 08/03/17 19:02 Date of discharge: 08/08/17 Attending physician: PATRICIA STANLEY 08/05/17 08:31 Consult to Physician [CONS] Routine Consulting Provider: SUMAN BARRON Reason For Exam: acute respiratory failure Place consult to:: pulmonary Notified:: yes Phone number called:: [phone] If yes, spoke with:: Cassie Time called:: 09:30 Consult to Physician [CONS] Routine Consulting Provider: LORNA ALBARADO Reason For Exam: CHF exacerbation Place consult to:: PER Notified:: YES Phone number called:: [phone] Time called:: 10:50 08/06/17 16:26 Consult to Physician [CONS] Routine Consulting Provider: RAMSEY TIJERINA Reason For Exam: COPD exacerbation Place consult to:: Dr. Barros Notified:: yes Phone number called:: [phone] If yes, spoke with:: Jose Time called:: 18:10 08/07/17 10:23 Physical Therapy Evaluation and Treat [CONS] Routine Comment: Reason For Exam: placement Primary care physician: [employer] Hospitalization Condition: Stable Hospital course: Discharge diagnosis and management: /Acute respiratory failure with hypoxia Patient oxygen saturation improved with BiPAP; currently SPO2 98%. No acute respiratory distress noted. Aggressive Nebulizers/Inhalers Home o2 eval prior to discharge and qualified for home o2 Pulmonary consulted /Acute on Chronic diastolic Congestive heart failure placed iv Diuresis with lasix, beta blockers managed with Strict I&O's and daily weights, Low-sodium/cardiac diet/fluid restriction Closely monitored electrolytes Cardiology was following /Acute COPD exacerbation placed on Duoneb every 6 hours Tappered IV steroid Solumedrol Initiated empiric Levaquin and Oxygen /Hypertension Resumed home antihypertensive medications Closely monitored blood pressure /Hyperlipidemia Resumed statin /Morbid obesity Counseling done Case managment consult to assist with social issues. /Chronic LE Lymphdema PT/OT consulted to eval and treat /DVT prophylaxis Lovenox Brief history: Patient is 52 years old morbidly obese female with history of COPD and congestive heart failure presented with three-day history of increasing shortness of breath and difficulty breathing. She usually fup at [place], but has been missing appointments since she did not assistance to life her from a Bariatric Wheelchair to [place] bus to use with Medicaid sponsored Amb[employer]. She was treated with IV diuretics and her medications optimized for diastolic CHF. She received aggressive medical treatments for acute COPD exacerbation, she received nebulizer steroids, empiric antibiotics and oxygen supplementation. She clinically improved and given acute on chronic hypercapnic respiratory failure she will continue to use BiPAP machine/NIV at home and home Oxygen. Case management also organize for bariatric bedside comode for her. She was counseled about lifestyle modification and weight loss. Patient verbalized understanding and will try to make a better effort at weight loss. Radiological test: CXR Hospitalist Physical exam: GENERAL: morbidly obese White female lying on bed appeared to be in mild discomfort. HEENT: Normocephalic. Atraumatic. No conjunctival congestion or icterus. Patient has moist mucous membranes. NECK: Supple. Trachea midline. CHEST/LUNGS: crackle auscultated bilaterally, breathing nonlabored. HEART/CARDIOVASCULAR: Regular in rate and rhythm. S1 and S2 positive. ABDOMEN: Abdomen is soft, nontender, obese. Patient has normal bowel sounds. SKIN: There is no rash. Warm and dry. NEURO: No focal motor deficit. Follows command. MUSCULOSKELETAL: No joint effusion or tenderness. EXTRIMITY: No edema, no cyanosis or clubbing. PSYCH: Cooperative. Disposition: [id number]/[place]-06 HOME UNDER HOME [facility] Time spent for discharge: 32 minures Core Measure Documentation - Palliative Care Palliative Care/ Comfort Measures: Not Applicable - Core Measures Any of the following diagnoses?: history only Exam - Constitutional Vitals: Temp Pulse Resp BP Pulse Ox 97.9 F 60 18 120/68 92 08/08/17 07:55 08/08/17 07:55 08/08/17 11:04 08/08/17 10:25 08/08/17 07:55 Plan Activity: up only with assistance Weight Bearing Status: Weight Bear as Tolerated Diet: low fat, low salt Follow up with: PRIMARY CARE, [Primary Care Provider] - 3-5 Days Prescriptions: AtorvaSTATin [Lipitor] 10 mg PO QHS #30 tablet Gabapentin [Gralise] 300 mg PO QHS #60 tab.er.24h Albuterol Sulfate [Ventolin HFA] 2 puff IH Q4H PRN #1 hfa.aer.ad PRN Reason: Shortness Of Breath Aspirin [Lo-Dose Aspirin EC] 81 mg PO DAILY #30 tablet.dr Budesonide/Formoterol Fumarate [Symbicort 160-4.5 Mcg Inhaler] 10.2 gm IH Q4-6H #1 hfa.aer.ad Carvedilol [Coreg] 12.5 mg PO BID #60 tablet Docusate Sodium [Colace CAP] 100 mg PO BID PRN #60 capsule PRN Reason: Constipation Duloxetine HCl [DULoxetine] 30 mg PO DAILY #30 capsule. Furosemide [Lasix] 80 mg PO BID #60 tablet Levofloxacin [Levaquin TAB] 750 mg PO Q24HR #3 tablet oxyCODONE /ACETAMINOPHEN [Percocet 5/325 mg] 1 tab PO Q8HR PRN #14 tablet PRN Reason: Pain Potassium Chloride [K-Dur] 20 meq PO Q24H #60 tablet predniSONE [Deltasone] 10 mg PO .TAPER #21 tab Symbicort 160-4.5 Mcg Inhaler 165 mcg IH Q6HR #1
[2017-08-08] MEDS ORDERED: D50W (25GM) Vial IV ONE (13:00)
--- NOTE | 2017-08-08 13:12 | Progress Note ---
Assessment and Plan Assessment: Acute respiratory failure / ? obesity hypoventilation syndrome COPD exacerbation Acute diastolic HF FRANKI HTN Fibromyalgia Lymphedema Morbid obesity Plan: Currently stable cardiac status. Pt may discharge home from cardiology standpoint. Recommend pt to follow up with primary cardiology team at [facility] within 3-5 business days of hospital discharge. Assessment and plan reviewed with pt at bedside. The patient has been seen in conjunction with Dr. Roblero who agrees with the assessment and plan of care. Subjective Date of service: 08/08/17 Principal diagnosis: COPD; HF Interval history: Pt resting comfortably in bed, states she just ambulated with PT for the first time and is very tired as a result this activity. She denies any current cardiac complaints. Objective Last Vital Signs Temp 97.9 F 08/08/17 07:55 Pulse 60 08/08/17 07:55 Resp 18 08/08/17 11:04 BP 120/68 08/08/17 10:25 Pulse Ox 92 08/08/17 07:55 - Physical Examination General: No Apparent Distress HEENT: Positive: PERRL, Normocephaly, Mucus Membranes Moist Cardiac: Positive: Reg Rate and Rhythm, S1/S2 Lungs: Positive: Decreased Breath Sounds Neuro: Positive: Grossly Intact Abdomen: Positive: Soft Skin: Positive: Clear. Negative: Rash, Wound Extremities: Present: +2 Edema (BLE), Other (chronic LLE lymphedema) - Labs and Meds Comprehensive Metabolic Panel 08/08/17 Range/Units 05:16 Sodium 137 (137-145) mmol/L Potassium 5.3 H (3.6-5.0) mmol/L Chloride 98.2 (98-107) mmol/L Carbon Dioxide 29 (22-30) mmol/L BUN 32 H (7-17) mg/dL Creatinine 0.6 L (0.7-1.2) mg/dL Glucose 204 H (65-100) mg/dL Calcium 8.3 L (8.4-10.2) mg/dL - Imaging and Cardiology EKG: report reviewed, image reviewed Echo: report reviewed ( 07/06/2017 showed mild LVH, EF 50-55%, impaired relaxation) - EKG Sinus rhythms and dysrhythmias: sinus rhythm QRS axis and voltage: low voltage Repolarization changes or abnormalities: nonspecific abnormality, ST segment, and/or T wave
--- NOTE | 2017-08-08 13:34 | Progress Note ---
Assessment and Plan Acute Hypoxemic Respiratory Failure Acute CHF exacerbation Morbid Obesity Sleep Disordered Breathing Lymphedema - continue to wean oxygen for O2 Sats > 90% - outpatient sleep study again recommended - continue bronchodilators and pulmonary hygeine - empiric AB's - begin systemic steroid taper - weight loss counselled - continue PT/OT as tolerated - continue other care per attending / other consultants ....d/c planning ok respiratory-appiah Subjective Date of service: 08/08/17 Principal diagnosis: COPD; Morbid Obesity; CMOP Interval history: Patient is seen today for: Acute on Chronic Hypoxemic Hypercapnic Resp Failure; AECOPD Seen and examined at bedside; 24hour events reviewed; nursing and respiratory care staff consulted; no adverse overnight events reported to me; resting peacefully in bed; feels better; remain son 3L NC; No acute chest pains; No N/V/ F/C Objective Vital Signs - 12hr 08/08/17 08/08/17 08/08/17 07:55 10:25 11:04 Temperature 97.9 F Pulse Rate 60 Respiratory 18 18 Rate Blood Pressure 125/63 120/68 O2 Sat by Pulse 92 Oximetry Constitutional: no acute distress, alert Eyes: non-icteric ENT: oropharynx moist Neck: supple, no lymphadenopathy, no JVD Effort: mildly labored (close to baseline though) Ascultation: Bilateral: clear, diminished breath sounds, other (prolonged exp phase) Percussion: Bilateral: not dull Cardiovascular: regular rate and rhythm, other (no rubs/murmurs) Gastrointestinal: normoactive bowel sounds, soft, non-tender, non-distended, other (No palpable HSM) Integumentary: normal Extremities: no cyanosis, pink and warm, pulses normal, edema Neurologic: normal mental status, non-focal exam, pupils equal and round, CN II- XII normal, motor strength normal and Psychiatric: depressed CBC and BMP: 08/03/17 16:14 08/08/17 15:03 ABG, PT/INR, D-dimer: ABG POC ABG pH 7.381 (7.35-7.45) 08/04/17 10:53 POC ABG pCO2 42.3 (35-45) 08/04/17 10:53 POC ABG pO2 56 (80-105) L 08/04/17 10:53 POC ABG HCO3 25.1 08/04/17 10:53 POC ABG Total CO2 26 08/04/17 10:53 POC ABG O2 Sat 88 08/04/17 10:53 Abnormal lab findings: Abnormal Labs 08/03/17 08/03/17 08/04/17 16:14 16:14 10:53 RDW 15.5 H Stokes % (Auto) 8.6 H POC ABG pO2 56 L Potassium Chloride 107.6 H Carbon Dioxide BUN Creatinine 0.6 L Glucose Calcium 08/05/17 08/06/17 08/07/17 08:35 06:37 07:00 RDW Stokes % (Auto) POC ABG pO2 Potassium 5.1 H Chloride 97.4 L 96.8 L Carbon Dioxide 31 H BUN 18 H 27 H 32 H Creatinine Glucose 186 H 195 H 198 H Calcium 8.2 L 08/08/17 05:16 RDW Stokes % (Auto) POC ABG pO2 Potassium 5.3 H Chloride Carbon Dioxide BUN 32 H Creatinine 0.6 L Glucose 204 H Calcium 8.3 L Chest x-ray: image reviewed (rotated to right; hyperinflation; mild interstitial edema; possible sma;ll pleural effusions)
[2017-08-08] MEDS: ZOFRAN IV PRN ×2 (13:56→23:01)
--- NOTE | 2017-08-08 15:43 | Progress Note ---
Assessment and Plan /Acute respiratory failure with hypoxia Patient oxygen saturation improved with BiPAP; currently SPO2 98%. No acute respiratory distress noted. Aggressive Nebulizers/Inhalers Home o2 eval prior to discharge ABG when necessary Oxygen supplement as needed Pulmonary consulted continue Supportive care /Acute on Chronic diastolic Congestive heart failure Continue Diuresis with lasix, beta blockers Strict I&O's and daily weights Low-sodium/cardiac diet/fluid restriction Closely monitor electrolytes Cardiology following /Acute COPD exacerbation Continue on Duoneb every 6 hours Ferdinand IV steroid Solumedrol Initiated empiric Levaquin Oxygen as necessary /Hypertension Resume home antihypertensive medications Closely monitor blood pressure /hyperkalemia give d50 and insulin, monitor repeat k level /Hyperlipidemia Resume statin /Morbid obesity Counseling done Case managment consult to assist with social issues. /Chronic Lymphdema PT/OT eval and treat /DVT prophylaxis Lovenox Disposition: likely tomorrow , when k level stabilizes Brief history: Patient is 52 years old morbidly obese female with history of COPD and congestive heart failure presented with three-day history of increasing shortness of breath and difficulty breathing. Radiological test: CXR Hospitalist Physical exam: GENERAL: morbidly obese White female lying on bed appeared to be in mild discomfort. HEENT: Normocephalic. Atraumatic. No conjunctival congestion or icterus. Patient has moist mucous membranes. NECK: Supple. Trachea midline. CHEST/LUNGS: crackle auscultated bilaterally, breathing nonlabored. HEART/CARDIOVASCULAR: Regular in rate and rhythm. S1 and S2 positive. ABDOMEN: Abdomen is soft, nontender, obese. Patient has normal bowel sounds. SKIN: There is no rash. Warm and dry. NEURO: No focal motor deficit. Follows command. MUSCULOSKELETAL: No joint effusion or tenderness. EXTRIMITY: No edema, no cyanosis or clubbing. PSYCH: Cooperative. Subjective Date of service: 08/08/17 Principal diagnosis: COPD; HF Interval history: Pt seen and examined cont to c/o SOB but improved since she got here, home o2 being arranged placed on BiPAP at night time during sleep had PT eval today, K level 5.3 this am Objective - Constitutional Vitals: Vital Signs - 12hr 08/08/17 08/08/17 08/08/17 07:40 07:50 07:55 Temperature 97.9 F Pulse Rate 60 Pulse Rate [ 74 75 Throughout] Respiratory 18 Rate Respiratory 18 18 Rate [ Throughout] Blood Pressure 125/63 O2 Sat by Pulse 92 Oximetry 08/08/17 08/08/17 10:25 11:04 Temperature Pulse Rate Pulse Rate [ Throughout] Respiratory 18 Rate Respiratory Rate [ Throughout] Blood Pressure 120/68 O2 Sat by Pulse Oximetry - Labs CBC & Chem 7: 08/03/17 16:14 08/08/17 15:03 Labs: Abnormal lab results 08/08/17 Range/Units 05:16 Potassium 5.3 H (3.6-5.0) mmol/L BUN 32 H (7-17) mg/dL Creatinine 0.6 L (0.7-1.2) mg/dL Glucose 204 H (65-100) mg/dL Calcium 8.3 L (8.4-10.2) mg/dL
[2017-08-08] MEDS: LOVENOX SUB-Q SCH (23:03)
[2017-08-08] MEDS: NEURONTIN PO SCH (23:04)
[2017-08-09] MEDS: DUONEB *Not for PRN Use IH SCH ×3 (02:40→14:00)
[2017-08-09] MEDS: LASIX IV SCH (06:03)
[2017-08-09] MEDS: PERCOCET 5/325 PO PRN ×2 (06:08→11:37)
[2017-08-09] MEDS: BROVANA NEBU IH SCH (08:18)
[2017-08-09] MEDS: PULMICORT IH SCH (08:18)
[2017-08-09] MEDS: CYMBALTA PO SCH (09:35)
[2017-08-09] MEDS: HALFPRIN EC PO SCH (09:35)
[2017-08-09] MEDS: FOLVITE PO SCH (09:36)
[2017-08-09] MEDS: CLARITIN PO SCH (09:36)
[2017-08-09 09:37] VITALS: BP 135/75
[2017-08-09] MEDS: COREG PO SCH (09:37)
[2017-08-09] MEDS: LEVAQUIN PO SCH (09:41)
[2017-08-09] MEDS: ZOFRAN IV PRN (09:45)
[2017-08-09] MEDS ORDERED: K-DUR PO SCH (10:00)
== END 2017-08-09 15:45 | disposition home health service (06) | DRG 291 ==
LOC: ED 15:51 → 3A 19:02
PROVIDERS: ADMIT Internal Medicine; ATTEND Internal Medicine
PROC: 4A033R1 Measurement of Arterial Saturation, Peripheral, Percutaneous Approach (ICD-10-PCS; principal; 2017-08-04)
PROC: 5A09357 Assistance with Respiratory Ventilation, Less than 24 Consecutive Hours, Continuous Positive Airway Pressure (ICD-10-PCS; 2017-08-05)
PROC: 5A09357 Assistance with Respiratory Ventilation, Less than 24 Consecutive Hours, Continuous Positive Airway Pressure (ICD-10-PCS; 2017-08-06)
PROC: 5A09357 Assistance with Respiratory Ventilation, Less than 24 Consecutive Hours, Continuous Positive Airway Pressure (ICD-10-PCS; 2017-08-08)
PROC: 5A09357 Assistance with Respiratory Ventilation, Less than 24 Consecutive Hours, Continuous Positive Airway Pressure (ICD-10-PCS; 2017-08-09)
DX: I11.0 Hypertensive heart disease with heart failure (principal); J96.01 Acute respiratory failure with hypoxia; J96.02 Acute respiratory failure with hypercapnia; I50.33 Acute on chronic diastolic (congestive) heart failure; J44.1 Chronic obstructive pulmonary disease with (acute) exacerbation; J20.9 Acute bronchitis, unspecified; F32.9 Major depressive disorder, single episode, unspecified; G89.29 Other chronic pain; J30.9 Allergic rhinitis, unspecified; E78.5 Hyperlipidemia, unspecified; J44.0 Chronic obstructive pulmonary disease with (acute) lower respiratory infection; I89.0 Lymphedema, not elsewhere classified; G47.33 Obstructive sleep apnea (adult) (pediatric); E66.01 Morbid (severe) obesity due to excess calories; Z68.45 Body mass index [BMI] 70 or greater, adult; Z71.3 Dietary counseling and surveillance; Z90.49 Acquired absence of other specified parts of digestive tract; Z98.51 Tubal ligation status; Z82.49 Family history of ischemic heart disease and other diseases of the circulatory system; Z87.891 Personal history of nicotine dependence; Z79.82 Long term (current) use of aspirin; Z79.51 Long term (current) use of inhaled steroids; Z79.2 Long term (current) use of antibiotics; Z79.899 Other long term (current) drug therapy; Z86.718 Personal history of other venous thrombosis and embolism
CPT/HCPCS: 36415; 36600; 51702; 71010; 80048; 82803; 83880; 84132; 84484; 85025; 93005; 93010; 94640; 94660; 94760; 96374; 96375; A9270-GY; J1650; J1815; J1940; J1956; J2405; J2920; J2930